=== PATIENT | male | born 2000 | race American Indian/Alaskan Native ===

== ENCOUNTER 2019-08-12 18:04 | Emergency (ER) | payer OTHER ==
--- NOTE | 2019-08-12 18:47 | EDM.PDOC ---
ED HPI GENERAL MEDICAL PROBLEM - General Chief Complaint: Chest Pain Stated Complaint: CHEST PAIN Time Seen by Provider: 08/12/19 18:25 Source of Information: Reports: Patient, RN Notes Reviewed History Limitations: Reports: No Limitations - History of Present Illness INITIAL COMMENTS - FREE TEXT/NARRATIVE: Patient is a 19-year-old male who presents to the ED for the evaluation of his left-sided chest discomfort. The patient notes that around 4 PM today, he had an episode where he was sitting on the couch, and he states he just felt his heart beating really fast. He felt as if it was pounding out of his chest. He tried counting his pulse rate and thought it was around 120 bpm, he is currently running 64 bpm at time of triage and this ER visit. Patient thought that this lasted around 15 minutes, he states during this time he tried taking some deep breaths to help calm himself down but nothing seemed to subside and then it just went away. He notes that he had some left chest discomfort and pain into his left shoulder, that had not radiated down his arm. He states he has not experienced anything like this before. He denies any dizziness/ lightheadedness, or diaphoresis with this. Patient states he is a cigarette smoker, but has cut back due to new age regulations, he denies alcohol use and drug use. He states that he usually drinks soda pop but did not have 1 of these today so he is not had any caffeine intake. He denies any other sort of medical issues, and has no regular provider. He further denies any cardiac history in his family. - Related Data Allergies Allergy/AdvReac Type Severity Reaction Status Date / Time No Known Allergies Allergy Verified 08/12/19 18:23 Home Meds: Home Meds . [No Known Home Meds] 08/12/19 [History] Past Medical History - Past Health History Medical/Surgical History: Denies Medical/Surgical History Social & Family History - Tobacco Use Smoking Status *Q: Current Every Day Smoker Years of Tobacco use: 1 Packs/Tins Daily: 0.2 - Caffeine Use Caffeine Use: Reports: Soda - Alcohol Use Alcohol Use History: No - Recreational Drug Use Recreational Drug Use: No ED ROS GENERAL - Review of Systems Review Of Systems: Comprehensive ROS is negative, except as noted in HPI. ED EXAM, GENERAL - Physical Exam Exam: See Below Exam Limited By: No Limitations General Appearance: Alert, WD/WN, No Apparent Distress Eye Exam: Bilateral Eye: EOMI, Normal Inspection, PERRL Ears: Normal External Exam Nose: Normal Inspection Throat/Mouth: Normal Inspection, Normal Lips, Normal Teeth, Normal Gums, Normal Oropharynx, Normal Voice, No Airway Compromise Head: Atraumatic, Normocephalic Neck: Normal Inspection Respiratory/Chest: No Respiratory Distress, Lungs Clear, Normal Breath Sounds, No Accessory Muscle Use, Other (slight tenderness to left upper chest with palpation) Cardiovascular: Normal Peripheral Pulses, Regular Rate, Rhythm, No Murmur GI/Abdominal: Normal Bowel Sounds, Soft, Non-Tender, No Distention, No Mass Extremities: Normal Inspection, Normal Capillary Refill Neurological: Alert, Oriented, Normal Cognition, No Motor/Sensory Deficits Psychiatric: Normal Affect, Normal Mood Skin Exam: Warm, Dry, Intact, Normal Color, No Rash EKG INTERPRETATION EKG Date: 08/12/19 Time: 18:55 Rhythm: NSR (sinus bradycardia) Rate (Beats/Min): 48 [place]: Normal P-Wave: Present QRS: Normal ST-T: Normal QT: Normal Comparison: NA - No Prior EKG EKG Interpretation Comments: No obvious ischemia or acute ST changes noted, reviewed by myself and Dr. Mendez. Course - Vital Signs Last Recorded V/S: Last Vital Signs Temp 99.0 F 08/12/19 18:17 Pulse 64 08/12/19 18:17 Resp 20 08/12/19 18:17 BP 167/86 H 08/12/19 18:17 Pulse Ox 99 08/12/19 18:17 - Orders/Labs/Meds Orders: Active Orders 24 hr Category Date Time Status EKG Documentation Completion [RC] STAT Care 08/12/19 18:39 Ordered - Re-Assessments/Exams Free Text/Narrative Re-Assessment/Exam: 08/12/19 18:47 Patient presents to the ED for the evaluation of his chest discomfort and feelings of tachycardia. Patient is not experiencing this at the time of the ER visit. Will get a EKG and a chest x-ray for further evaluation, and likely send him home with recommendations of Holter monitoring through [facility]. 08/12/19 19:23 EKG does demonstrate sinus bradycardia, but no sign of a tachycardia event. Otherwise no acute ischemic change, this was reviewed by myself and Dr. Mendez , patient's chest x-ray also shows no acute findings. We will discharge him home and have him follow-up with a provider at the [facility] for possible Holter monitoring for further evaluation. Departure - Departure Time of Disposition: 19:24 Disposition: Home, Self-Care 01 Condition: Good Clinical Impression: Palpitations Instructions: Palpitations, [id number], Ambulatory Cardiac Monitoring Referrals: PCP,None [Primary Care Provider] - Forms: ED Department Discharge Additional Instructions: You were evaluated in the ER today regarding your abnormal heart issue. EKG and chest x-ray were done at today's visit, and demonstrate no acute ischemic change or abnormalities, you are not suffering from a heart attack at today's visit. Highly and strongly recommend you follow-up with your provider at the [facility], their number is [phone] or [phone], please follow-up with any family practice provider for ambulatory cardiac monitoring (AKA Holter monitor) to further evaluate your feelings of tachycardia. Please return to the ER at any time if symptoms change or worsen. Sepsis Event Note - Evaluation Sepsis Screening Result: No Definite Risk - Focused Exam Vital Signs: Vital Signs Temp Pulse Resp BP Pulse Ox 08/12/19 18:17 99.0 F 64 20 167/86 H 99 Date Exam was Performed: 08/12/19 Time Exam was Performed: 19:23 - My Orders Last 24 Hours: My Active Orders 08/12/19 18:39 EKG Documentation Completion [RC] STAT - Assessment/Plan Last 24 Hours: My Active Orders 08/12/19 18:39 EKG Documentation Completion [RC] STAT
--- NOTE | 2019-08-12 19:17 | CR ---
Chest: 2 views of the chest were obtained. Comparison: No previous chest x-ray. Heart size and mediastinum are normal. Lungs are clear with no acute parenchymal change. Bony structures are unremarkable. Impression: 1. Nothing acute is seen on 2 view chest x-ray. Diagnostic code #1 This report was dictated in MDT
== END 2019-08-12 19:40 | disposition home or self-care (01) ==
LOC: JD.ED 18:04
DX: R00.2 Palpitations (principal); F17.210 Nicotine dependence, cigarettes, uncomplicated
CPT/HCPCS: 71046; 71046-26; 93005; 99285-25